=== PATIENT | male | born 1950 | race African-American/Black ===

== ENCOUNTER 2017-04-04 13:17 | Inpatient (IN) | payer MEDICARE, MEDICAID ==
[~2017-04-04] VITALS: Ht 182.9 cm; Wt 145.6 kg
[2017-04-04] MEDS ORDERED: FURO20TA4 PO (13:24)
[2017-04-04] MEDS ORDERED: POTA10CA42 PO (13:24)
[2017-04-04] MEDS ORDERED: LORA0.5T2 PO (13:24)
[2017-04-04] MEDS ORDERED: PHEN50TA PO (13:24)
[2017-04-04] MEDS ORDERED: ASPI-986 PO (13:24)
[2017-04-04] MEDS ORDERED: GABA-529 PO ×2 (13:24→22:00)
[2017-04-04] MEDS ORDERED: PRED1TAB3 PO (13:24)
[2017-04-04 16:58] LABS: BASOPHILS % 0.3 % (0.0-2.0); EOSINOPHILS % 5.4 % (0.0-5.0); HEMATOCRIT. 58.5 % (42.0-52.0); HEMOGLOBIN. 19.7 g/dL (14.0-18.0); LYMPHOCYTES % 10.7 % (20.0-50.0); MEAN CORPUSCULAR HEMOGLOBIN 32.9 pg (28.0-32.0); MEAN CORPUSCULAR VOLUME 97.9 fL (80.0-94.0); MONOCYTES % 5.1 % (2.0-8.0); NEUTROPHILS % 78.5 % (40.0-76.0); RED BLOOD CELL COUNT 5.97 mill/uL (4.7-6.1)
[2017-04-04 17:07] LABS: INR 1.2; PROTHROMBIN TIME 12.4 sec (9.4-11.6)
[2017-04-04] MEDS ORDERED: FUROSEMIDE 20MG/2ML VIAL IVP ONE (17:15)
[2017-04-04 17:42] LABS: CARBON DIOXIDE 28 mEq/L (21-32); CHLORIDE 104 mEq/L (98-107)
[2017-04-04 17:44] LABS: PLATELET 71 x1000/uL (130-400)
[2017-04-04 19:31] LABS: CLARITY URINE CLEAR (CLEAR); COLOR URINE DARK YELLOW (YELLOW); GLUCOSE URINE NEGATIVE (NEGATIVE); KETONES URINE TRACE (NEGATIVE); LEUKOCYTE ESTERASE URINE TRACE (NEGATIVE); NITRITE URINE NEGATIVE (NEGATIVE); OCCULT BLOOD URINE NEGATIVE (NEGATIVE); PROTEIN URINE NEGATIVE (NEGATIVE); SPECIFIC GRAVITY URINE 1.021 (1.005-1.030)
[2017-04-04 21:00] VITALS: BP 139/67
[2017-04-04] MEDS ORDERED: ALBU90AE IH (22:00)
[2017-04-04] MEDS ORDERED: CHOL100022 PO (22:00)
[2017-04-04] MEDS ORDERED: DICL100G31 BOTHEYE (22:00)
[2017-04-04] MEDS ORDERED: FURO80TA87 PO (22:00)
[2017-04-04] MEDS ORDERED: MENT71OI TP (22:00)
[2017-04-04] MEDS ORDERED: P20 PO (22:00)
[2017-04-04] MEDS ORDERED: DOCU-138 PO (22:00)
[2017-04-04] MEDS ORDERED: ASPI-1159 PO (22:00)
[2017-04-04] MEDS ORDERED: PHEN100C4 PO (22:00)
[2017-04-04] MEDS ORDERED: LORA1TAB PO ×2 (22:03)
[2017-04-04] MEDS ORDERED: APAP/CODEINE PO (22:06)
[2017-04-04] MEDS ORDERED: ACETAMINOPHEN 650MG/20.3ML UDC GT PRN (22:15)
[2017-04-04] MEDS ORDERED: ACETAMINOPHEN 650MG SUPP PR PRN (22:15)
[2017-04-04] MEDS ORDERED: ONDANSETRON HCL 4MG/2ML VIAL IV PRN (22:15)
[2017-04-04] MEDS ORDERED: ACETAMINOPHEN 325MG TABLET PO PRN (22:15)
[2017-04-04] MEDS ORDERED: MAGNESIUM/ALUMINUM HYDROXIDE/SIMETHICONE 30ML UDC PO PRN (22:15)
[2017-04-04] MEDS ORDERED: CLONIDINE 0.1MG TABLET PO PRN (22:15)
[2017-04-04] MEDS ORDERED: DOCUSATE SODIUM 100MG CAPSULE PO PRN (22:15)
[2017-04-04] MEDS ORDERED: GUAIFENESIN 200MG/10ML SUGAR FREE UDC PO PRN (22:15)
[2017-04-04] MEDS ORDERED: IPRATROPIUM/ALBUTEROL 0.5-3(2.5)MG/3ML NEB INH PRN (22:15)
[2017-04-04] MEDS ORDERED: LORAZEPAM 0.5MG TABLET PO PRN (22:15)
[2017-04-04] MEDS ORDERED: DIPHENHYDRAMINE 50MG/ML VIAL IV PRN (22:15)
[2017-04-04] MEDS ORDERED: NA PHOS,M-B/NA PHOS,DI-BA ENEMA 118ML PR PRN (22:15)
[2017-04-04] MEDS: HYDROCODONE/ACETAMINOPHEN 5/325MG TABLET PO PRN (22:23)
[2017-04-04] MEDS: FUROSEMIDE 40MG/4ML VIAL IV SCH (22:25)
[2017-04-04] MEDS: DOCUSATE SODIUM 100MG CAPSULE PO SCH (22:30)
[2017-04-04] MEDS: ASPIRIN 81MG EC TABLET PO SCH (22:30)
[2017-04-04] MEDS: SODIUM CHLORIDE 0.9% INJ 3ML FLUSH IVF SCH (22:31)
[2017-04-04] MEDS: PHENYTOIN SODIUM EXTENDED 100MG CAPSULE PO SCH (22:31)
[2017-04-04] MEDS: PREDNISONE 20MG TABLET PO SCH (22:31)
[2017-04-05] VITALS: BP 113/60
[2017-04-05 04:00] VITALS: BP 110/55
[2017-04-05] MEDS: PHENYTOIN SODIUM EXTENDED 100MG CAPSULE PO SCH ×3 (06:57→22:33)
[2017-04-05 07:01] LABS: *AMPHETAMINES SCREEN URINE NEGATIVE (NEGATIVE); *BARBITURATES SCREEN URINE NEGATIVE (NEGATIVE); *BENZODIAZEPINES SCREEN URINE NEGATIVE (NEGATIVE); *COCAINE SCREEN URINE NEGATIVE (NEGATIVE); CANNABINOID URINE SCREEN NEGATIVE (NEGATIVE); METHADONE URINE SCREEN NEGATIVE (NEGATIVE); OPIATES URINE SCREEN PRESUMTIVE POSITIVE (NEGATIVE); PHENCYCLIDINE URINE SCREEN NEGATIVE (NEGATIVE)
[2017-04-05 07:37] LABS: CLARITY URINE CLEAR (CLEAR); COLOR URINE YELLOW (YELLOW); GLUCOSE URINE NEGATIVE (NEGATIVE); KETONES URINE NEGATIVE (NEGATIVE); LEUKOCYTE ESTERASE URINE NEGATIVE (NEGATIVE); NITRITE URINE NEGATIVE (NEGATIVE); OCCULT BLOOD URINE NEGATIVE (NEGATIVE); PROTEIN URINE NEGATIVE (NEGATIVE); SPECIFIC GRAVITY URINE 1.018 (1.005-1.030)
[2017-04-05 08:00] VITALS: BP 139/69
[2017-04-05] MEDS: MENTHOL/LANOLIN/CALAMINE/ZN OX OINT 71GM TOP SCH (08:20)
[2017-04-05] MEDS: PREDNISONE 20MG TABLET PO SCH (08:24)
[2017-04-05] MEDS: ASPIRIN 81MG EC TABLET PO SCH (08:24)
[2017-04-05] MEDS: LORAZEPAM 1MG TABLET PO SCH ×2 (08:24→22:33)
[2017-04-05] MEDS: CHOLECALCIFEROL (D3) 1000 UNIT TABLET PO SCH (08:24)
[2017-04-05] MEDS: DOCUSATE SODIUM 100MG CAPSULE PO SCH ×2 (08:24→16:39)
[2017-04-05] MEDS: FUROSEMIDE 40MG/4ML VIAL IV SCH ×2 (08:25→16:39)
[2017-04-05] MEDS: GABAPENTIN 100MG CAPSULE PO SCH ×2 (08:25→22:33)
[2017-04-05] MEDS: HYDROCODONE/ACETAMINOPHEN 5/325MG TABLET PO PRN (11:11)
[2017-04-05] MEDS ORDERED: SODIUM POLYSTYRENE SULFONATE 15 G/60 ML BOT PO SCH (11:15)
[2017-04-05] MEDS ORDERED: BISACODYL 10MG SUPP PR SCH (11:15)
[2017-04-05] MEDS ORDERED: BISACODYL 10MG SUPP PR PRN (11:15)
[2017-04-05 11:58] LABS: BASOPHILS % 0.4 % (0.0-2.0); HEMOGLOBIN. 16.1 g/dL (14.0-18.0); LYMPHOCYTES % 8.4 % (20.0-50.0); MEAN CORPUSCULAR HEMOGLOBIN 32.6 pg (28.0-32.0); MEAN CORPUSCULAR VOLUME 97.3 fL (80.0-94.0); MEAN PLATELET VOLUME 8.4 fl (7.4-10.4); MONOCYTES % 4.8 % (2.0-8.0); NEUTROPHILS % 81.4 % (40.0-76.0); PLATELET 222 x1000/uL (130-400); RED BLOOD CELL COUNT 4.93 mill/uL (4.7-6.1); RED CELL DISTRIBUTION WIDTH 13.9 % (11.6-14.6)
[2017-04-05 12:00] VITALS: BP 138/83
[2017-04-05] MEDS ORDERED: MAGNESIUM CITRATE 300ML SOLUTION PO SCH (12:00)
[2017-04-05 12:15] LABS: CARBON DIOXIDE 30 mEq/L (21-32); CHLORIDE 99 mEq/L (98-107); CREATINE KINASE 372 IU/L (39-308); HDL CHOLESTEROL 52 mg/dL (40-59); LDL CHOLESTEROL 96 mg/dL (5-100); TROPONIN I < 0.02 ng/mL (0.00-0.04)
[2017-04-05] MEDS: SODIUM CHLORIDE 0.9% INJ 3ML FLUSH IVF SCH ×2 (13:32→22:36)
[2017-04-05 16:00] VITALS: BP 129/69
[2017-04-05 20:00] VITALS: BP 130/70
[2017-04-06] VITALS: BP 110/68
[2017-04-06 04:00] VITALS: BP 110/55
[2017-04-06] MEDS: SODIUM CHLORIDE 0.9% INJ 3ML FLUSH IVF SCH ×3 (05:53→21:51)
[2017-04-06] MEDS: PHENYTOIN SODIUM EXTENDED 100MG CAPSULE PO SCH ×3 (05:53→22:16)
[2017-04-06 06:51] LABS: HEMATOCRIT. 46.6 % (42.0-52.0); HEMOGLOBIN. 15.6 g/dL (14.0-18.0); MEAN CORPUSCULAR HEMOGLOBIN 32.8 pg (28.0-32.0); MEAN CORPUSCULAR VOLUME 97.7 fL (80.0-94.0); MEAN PLATELET VOLUME 8.3 fl (7.4-10.4); PLATELET 223 x1000/uL (130-400); RED BLOOD CELL COUNT 4.77 mill/uL (4.7-6.1); RED CELL DISTRIBUTION WIDTH 13.9 % (11.6-14.6)
[2017-04-06 07:37] LABS: CARBON DIOXIDE 33 mEq/L (21-32); CHLORIDE 99 mEq/L (98-107); TROPONIN I < 0.02 ng/mL (0.00-0.04)
[2017-04-06 08:00] VITALS: BP 102/42
[2017-04-06] MEDS: DOCUSATE SODIUM 100MG CAPSULE PO SCH ×2 (08:48→18:21)
[2017-04-06] MEDS: ASPIRIN 81MG EC TABLET PO SCH (08:49)
[2017-04-06] MEDS: PREDNISONE 20MG TABLET PO SCH (08:49)
[2017-04-06] MEDS: FUROSEMIDE 40MG/4ML VIAL IV SCH (08:49)
[2017-04-06] MEDS: CHOLECALCIFEROL (D3) 1000 UNIT TABLET PO SCH (08:49)
[2017-04-06] MEDS: LORAZEPAM 1MG TABLET PO SCH ×2 (08:49→20:36)
[2017-04-06] MEDS: GABAPENTIN 100MG CAPSULE PO SCH ×2 (08:49→20:36)
[2017-04-06] MEDS: HYDROCODONE/ACETAMINOPHEN 10/325MG TABLET PO PRN ×2 (08:50→18:21)
[2017-04-06] MEDS: MENTHOL/LANOLIN/CALAMINE/ZN OX OINT 71GM TOP SCH (08:50)
[2017-04-06 12:00] VITALS: BP 118/54
[2017-04-06 12:08] LABS: PLATELET ESTIMATE NORMAL
[2017-04-06] MEDS: DILTIAZEM HCL 60MG TABLET PO SCH ×2 (15:15→21:56)
[2017-04-06 16:00] VITALS: BP 133/73
[2017-04-06 20:00] VITALS: BP 157/64
[2017-04-06] MEDS ORDERED: DIPHENHYDRAMINE 12.5MG/5ML UDC PO PRN (22:30)
[2017-04-06] MEDS: DIPHENHYDRAMINE 50MG CAPSULE PO PRN (22:44)
[2017-04-07] VITALS: BP 130/78
[2017-04-07 04:00] VITALS: BP 121/67
[2017-04-07 05:59] LABS: BASOPHILS % 0.8 % (0.0-2.0); EOSINOPHILS % 13.1 % (0.0-5.0); HEMATOCRIT. 42.1 % (42.0-52.0); LYMPHOCYTES % 11.9 % (20.0-50.0); MEAN CORPUSCULAR HEMOGLOBIN 32.2 pg (28.0-32.0); MEAN CORPUSCULAR VOLUME 96.9 fL (80.0-94.0); MEAN PLATELET VOLUME 8.5 fl (7.4-10.4); MONOCYTES % 9.6 % (2.0-8.0); NEUTROPHILS % 64.6 % (40.0-76.0); PLATELET 208 x1000/uL (130-400); RED BLOOD CELL COUNT 4.35 mill/uL (4.7-6.1); RED CELL DISTRIBUTION WIDTH 13.9 % (11.6-14.6)
[2017-04-07] MEDS: SODIUM CHLORIDE 0.9% INJ 3ML FLUSH IVF SCH ×3 (06:00→22:10)
[2017-04-07] MEDS: PHENYTOIN SODIUM EXTENDED 100MG CAPSULE PO SCH ×3 (06:06→22:10)
[2017-04-07] MEDS: DILTIAZEM HCL 60MG TABLET PO SCH ×3 (06:06→22:10)
[2017-04-07] MEDS: DIPHENHYDRAMINE 50MG CAPSULE PO PRN ×3 (06:08→20:46)
[2017-04-07 06:22] LABS: CHLORIDE 103 mEq/L (98-107)
[2017-04-07 06:47] LABS: CARBON DIOXIDE 31 mEq/L (21-32)
[2017-04-07 08:00] VITALS: BP 122/64
[2017-04-07] MEDS: CHOLECALCIFEROL (D3) 1000 UNIT TABLET PO SCH (08:46)
[2017-04-07] MEDS: LORAZEPAM 1MG TABLET PO SCH ×2 (08:46→20:42)
[2017-04-07] MEDS: PREDNISONE 20MG TABLET PO SCH (08:46)
[2017-04-07] MEDS: DOCUSATE SODIUM 100MG CAPSULE PO SCH ×2 (08:46→17:55)
[2017-04-07] MEDS: ASPIRIN 81MG EC TABLET PO SCH (08:47)
[2017-04-07] MEDS: GABAPENTIN 100MG CAPSULE PO SCH ×2 (08:47→20:42)
[2017-04-07] MEDS: HYDROCODONE/ACETAMINOPHEN 10/325MG TABLET PO PRN ×2 (08:47→17:55)
[2017-04-07] MEDS: MENTHOL/LANOLIN/CALAMINE/ZN OX OINT 71GM TOP SCH (08:48)
[2017-04-07] MEDS ORDERED: LIDOCAINE HCL 1% 20ML VIAL (Pyxis) INJ ONE (08:50)
[2017-04-07] MEDS ORDERED: FUROSEMIDE 100MG/10ML VIAL IV SCH (09:00)
[2017-04-07 12:00] VITALS: BP 140/81
[2017-04-07] MEDS ORDERED: MENTHOL/LANOLIN/CALAMINE/ZN OX OINT 71GM TOP PRN (14:45)
[2017-04-07 16:00] VITALS: BP 109/64
[2017-04-07] MEDS: FUROSEMIDE 40MG TABLET PO SCH (17:55)
[2017-04-07 20:00] VITALS: BP 116/60
[2017-04-08 00:05] VITALS: BP 133/76
[2017-04-08 04:33] VITALS: BP 117/60
[2017-04-08] MEDS: DILTIAZEM HCL 60MG TABLET PO SCH ×2 (05:56→13:11)
[2017-04-08] MEDS: FUROSEMIDE 40MG TABLET PO SCH (05:56)
[2017-04-08] MEDS: DIPHENHYDRAMINE 50MG CAPSULE PO PRN (05:56)
[2017-04-08] MEDS: PHENYTOIN SODIUM EXTENDED 100MG CAPSULE PO SCH ×2 (05:56→13:10)
[2017-04-08] MEDS: SODIUM CHLORIDE 0.9% INJ 3ML FLUSH IVF SCH ×2 (05:56→13:10)
[2017-04-08 07:52] VITALS: BP 118/74
[2017-04-08] MEDS: LORAZEPAM 1MG TABLET PO SCH (07:52)
[2017-04-08] MEDS: CHOLECALCIFEROL (D3) 1000 UNIT TABLET PO SCH (09:19)
[2017-04-08] MEDS: ASPIRIN 81MG EC TABLET PO SCH (09:20)
[2017-04-08] MEDS: DOCUSATE SODIUM 100MG CAPSULE PO SCH (09:20)
[2017-04-08] MEDS: GABAPENTIN 100MG CAPSULE PO SCH (09:20)
[2017-04-08] MEDS: PREDNISONE 20MG TABLET PO SCH (09:22)
[2017-04-08] MEDS: HYDROCODONE/ACETAMINOPHEN 10/325MG TABLET PO PRN (12:07)
[2017-04-08 12:13] VITALS: BP 121/72
[2017-04-08 14:48] VITALS: BP 121/72
== END 2017-04-08 17:10 | DRG 682 ==
LOC: ER 14:06 → 7WST 17:06 → ENRESERV 17:34
PROVIDERS: ADMIT Family Medicine; ATTEND Family Medicine
PROC: 02HV33Z Insertion of Infusion Device into Superior Vena Cava, Percutaneous Approach (ICD-10-PCS; principal; 2017-04-07)
PROC: B548ZZA Ultrasonography of Superior Vena Cava, Guidance (ICD-10-PCS; 2017-04-07)
DX: N17.9 Acute kidney failure, unspecified (principal); I50.23 Acute on chronic systolic (congestive) heart failure; E11.40 Type 2 diabetes mellitus with diabetic neuropathy, unspecified; I48.0 Paroxysmal atrial fibrillation; E87.5 Hyperkalemia; J98.11 Atelectasis; Z68.41 Body mass index [BMI] 40.0-44.9, adult; R56.9 Unspecified convulsions; J44.9 Chronic obstructive pulmonary disease, unspecified; E66.09 Other obesity due to excess calories; I11.0 Hypertensive heart disease with heart failure; I44.7 Left bundle-branch block, unspecified; K59.00 Constipation, unspecified; F17.210 Nicotine dependence, cigarettes, uncomplicated; G47.33 Obstructive sleep apnea (adult) (pediatric); Z91.14 Patient's other noncompliance with medication regimen
CPT/HCPCS: 36415; 36569; 71010; 76937; 77001; 80048; 80053; 80061; 80305; 81001; 81003; 82550; 82962; 83735; 83880; 84443; 84484; 85025; 85610; 93005; 93306; 96374; 97116; 97162; 97530; 99285; C1725; C1893; J1940; J3490; J7512; Q0163

== ENCOUNTER 2019-08-10 18:56 | Emergency (ER) | payer MEDICARE, MEDICAID ==
[~2019-08-10] VITALS: Ht 172.7 cm; Wt 110.0 kg
[~2019-08-10 18:56] MED LIST: ALBU90AE IH; APAP/CODEINE PO; ASPI-1497 PO; CHOL100022 PO; DICL100G31 BOTHEYE; DOCU-138 PO; FURO80TA87 PO; GABA-529 PO; LORA1TAB PO; MENT71OI TP; P20 PO; PHEN100C4 PO; POTA10CA42 PO
[2019-08-11] MEDS ORDERED: KETOROLAC 30MG/ML VIAL IM ONE (01:45)
[2019-08-11 05:46] VITALS: BP 99/47
== END 2019-08-11 05:59 ==
LOC: ER 18:56
DX: M54.5 Low back pain (principal); M25.512 Pain in left shoulder; M25.511 Pain in right shoulder; Z91.81 History of falling; G89.11 Acute pain due to trauma; I11.0 Hypertensive heart disease with heart failure; I50.9 Heart failure, unspecified; J44.9 Chronic obstructive pulmonary disease, unspecified
CPT/HCPCS: 71045; 72100; 96372; 99285; J1885